=== PATIENT | male | born 1950 | race Caucasian/White ===

== ENCOUNTER 2021-02-22 06:34 | Day surgery (SDC) | payer MEDICARE, OTHER ==
[2021-02-20 08:31] LABS: BASOPHILS # (AUTO) 0.1 X10'3 (0-0.2); BASOPHILS % (AUTO) 1.4 % (0-1); EOSINOPHILS # (AUTO) 0.2 X10'3 (0-0.9); EOSINOPHILS % (AUTO) 3.6 % (0-6); HEMATOCRIT 44.1 % (42.0-52.0); HEMOGLOBIN 14.6 g/dl (14.0-17.9); LYMPHOCYTES # (AUTO) 1.1 X10'3 (1.1-4.8); LYMPHOCYTES % (AUTO) 17.1 % (21-51); MEAN CORPUSCULAR HEMOGLOBIN 28.4 PG (27.0-31.0); MEAN CORPUSCULAR HGB CONC 33.2 g/dL (33.0-36.5); MEAN CORPUSCULAR VOLUME 85.6 FL (78-98); MEAN PLATELET VOLUME 8.6 FL (7.4-10.4); MONOCYTES # (AUTO) 0.8 X10'3 (0-0.9); MONOCYTES % (AUTO) 12.5 % (2-12); NEUTROPHILS # (AUTO) 4.1 X10'3 (1.8-7.7); NEUTROPHILS % (AUTO) 65.4 % (42-75); PLATELET COUNT 290 X10'3 (140-440); RED BLOOD COUNT 5.16 X10'6 (4.70-6.10); RED CELL DISTRIBUTION WIDTH 15.5 % (11.5-14.5); WHITE BLOOD COUNT 6.3 X10'3 (4.5-11.0)
[2021-02-20 08:46] LABS: PARTIAL THROMBOPLASTIN TIME 32 SECONDS (22-32)
[2021-02-20 08:54] LABS: ALANINE AMINOTRANSFERASE 35 U/L (12-78); ALBUMIN/GLOBULIN RATIO 1.1 (1.1-1.5); ALKALINE PHOSPHATASE 112 IU/L (46-116); ANION GAP 8 (8-16); ASPARTATE AMINO TRANSFERASE 29 U/L (10-37); BILIRUBIN,TOTAL 0.5 MG/DL (0.1-1.0); BLOOD UREA NITROGEN 25 MG/DL (7-18); BUN/CREATININE RATIO 24.8 (5.4-32.0); CALCIUM 10.2 MG/DL (8.5-10.1); CHLORIDE 103 MMOL/L (99-107); CREATININE 1.01 MG/DL (0.60-1.10); GLUCOSE 106 MG/DL (70-104); POTASSIUM 4.8 MMOL/L (3.5-5.1); SODIUM 138 MMOL/L (135-145); TOTAL CARBON DIOXIDE 27.3 MMOL/L (24-32); TOTAL PROTEIN 7.7 G/DL (6.4-8.2); eGFR 73 ML/MIN
[~2021-02-22] VITALS: Ht 182.9 cm; Wt 79.2 kg
[2021-02-22] VITALS (11 sets, daily range): BP systolic 108–131; BP diastolic 64–81
[~2021-02-22 06:34] MED LIST: NO HOME MEDS
[2021-02-22] MEDS ORDERED: nitroGLYCERIN 0.4mg SUBLingual tab SL PRN ×2 (06:55→10:50)
[2021-02-22] MEDS ORDERED: LORazepam 0.5 MG tablet PO PRN (06:55)
[2021-02-22] MEDS ORDERED: diphenhydrAMINE 25mg capsule PO PRN (06:55)
[2021-02-22] MEDS ORDERED: normal saline 1,000 ML IV SCH (06:55)
[2021-02-22] MEDS ORDERED: LISI20TA28 PO (07:15)
[2021-02-22] MEDS ORDERED: POTA20TA19 PO (07:15)
[2021-02-22] MEDS ORDERED: LAN0.125T PO (07:15)
[2021-02-22] MEDS ORDERED: FURO40TA4 PO (07:15)
[2021-02-22] MEDS ORDERED: CARV6.253 PO (07:15)
[2021-02-22] MEDS ORDERED: midazolam 1 mg/ML 2ml injection ONE (08:51)
[2021-02-22] MEDS ORDERED: fentaNYL/PF 50MCG/1 ML 2ML syringe ONE (08:52)
[2021-02-22] MEDS ORDERED: iohexol 350MG/ML 100ml bottle IV ONE (08:52)
[2021-02-22] MEDS ORDERED: LIDOcaine 1% (10mg/ml)w/preservative injection 20ml MDV ONE (08:52)
[2021-02-22] MEDS ORDERED: iohexol 350 MG/ML 50ML vial IV ONE (08:52)
[2021-02-22] MEDS ORDERED: OXAZEpam 15mg capsule PO PRN (10:50)
[2021-02-22] MEDS ORDERED: HYDROcodone/acetaminophen 5mg/325mg tablet PO PRN (10:50)
[2021-02-22] MEDS ORDERED: acetaminophen 325mg tablet PO PRN (10:50)
[2021-02-22] MEDS ORDERED: proCHLORperazine 10 MG/2 ml inj IV PRN (10:50)
[2021-02-22] MEDS ORDERED: HYDROcodone/acetaminophen 10/325mg tab PO PRN (10:50)
[2021-02-22] MEDS ORDERED: ondansetron/PF 4mg/2ml inj IV PRN (10:50)
== END 2021-02-22 15:45 | disposition home or self-care (01) ==
LOC: SSTAY O 06:34
PROVIDERS: ATTEND Internal Medicine Cardiovascular Disease
DX: R94.39 Abnormal result of other cardiovascular function study (principal); I25.10 Atherosclerotic heart disease of native coronary artery without angina pectoris; I42.9 Cardiomyopathy, unspecified; E78.5 Hyperlipidemia, unspecified; I50.9 Heart failure, unspecified; I08.1 Rheumatic disorders of both mitral and tricuspid valves; J44.9 Chronic obstructive pulmonary disease, unspecified; Z98.890 Other specified postprocedural states; Z79.899 Other long term (current) drug therapy; Z87.891 Personal history of nicotine dependence
CPT/HCPCS: 36415; 71046; 80053; 85025; 85610; 85730; 93005; 93306; 93458; 99152; 99153; C1760; C1769; J1644; J2001; J2250; J3010; J7030; Q0163; Q9967; A4620; A6258

== ENCOUNTER 2024-09-30 09:06 | Day surgery (SDC) | payer MEDICARE, OTHER ==
[2024-09-30] VITALS (8 sets, daily range): BP systolic 112–161; BP diastolic 58–92; PULSE 67–84; RESP 12–18; TEMP 97.7; O2SAT 97–99
[~2024-09-30] VITALS: Ht 181.6 cm; Wt 180.0 kg
[2024-09-30] MEDS ORDERED: propofol 10mg/ml 20ml vial IV ONE (10:03)
[2024-09-30] MEDS ORDERED: fentaNYL/PF 50MCG/1 ML 2ML syringe ONE (10:06)
[2024-09-30] MEDS ORDERED: midazolam 1 mg/ML 2ml injection ONE (10:07)
== END 2024-09-30 11:30 | disposition home or self-care (01) ==
LOC: GI LAB 09:06
PROVIDERS: ATTEND Internal Medicine Gastroenterology
DX: D50.0 Iron deficiency anemia secondary to blood loss (chronic) (principal); K31.89 Other diseases of stomach and duodenum; E89.0 Postprocedural hypothyroidism; Z85.850 Personal history of malignant neoplasm of thyroid; Z90.89 Acquired absence of other organs; Z98.890 Other specified postprocedural states
CPT/HCPCS: 43239; 45378; A4620; J2250; J2704; J3010; J7030